=== PATIENT | female | born 1975 | race Caucasian/White ===

== ENCOUNTER 2020-10-18 19:26 | Emergency (ER) | payer OTHER ==
[2020-10-19 16:45] LABS: SARS-CoV-2 MS2 Positive; SARS-CoV-2 N Gene Negative; SARS-CoV-2 S Gene Negative; SARS-CoV-2 by NAA Not Detected (NotDetected); SARS-CoV-2 orf1ab Negative
== END 2020-10-18 21:03 | disposition home or self-care (01) ==
LOC: MADERS 19:26
DX: J02.9 Acute pharyngitis, unspecified (principal); R53.83 Other fatigue; R05 Cough; Z20.822 Contact with and (suspected) exposure to COVID-19; E03.9 Hypothyroidism, unspecified; E06.3 Autoimmune thyroiditis; I10 Essential (primary) hypertension; Z79.899 Other long term (current) drug therapy; F17.210 Nicotine dependence, cigarettes, uncomplicated
CPT/HCPCS: 87635; 99283; U0003